=== PATIENT | female | born 1990 ===

== ENCOUNTER 2018-02-22 15:55 | Emergency (ER) | payer OTHER ==
[2018-02-22 16:07] VITALS: BP 116/81; PULSE 88; RESP 16; TEMP 98.7; O2SAT 100
[2018-02-22 16:32] LABS: HCG,QUALITATIVE URINE NEGATIVE (NEGATIVE); SQUAMOUS EPITHIAL 1 /hpf (0-5); URINE BACTERIA RARE (<OCC); URINE BILIRUBIN NEGATIVE (NEGATIVE); URINE BLOOD NEGATIVE (NEGATIVE); URINE CLARITY Clear (Clear); URINE COLOR Yellow (YELLOW); URINE GLUCOSE (UA) NORMAL (Normal); URINE LEUKOCYTE ESTERASE NEG Leu/uL (Negative); URINE PROTEIN NEGATIVE (NEGATIVE); URINE UROBILINOGEN NORMAL mg/dL (0.2-1.0)
[2018-02-22] MEDS ORDERED: Alum-Mag Hydrox-Simethicone Susp (30 mL) PO STA (16:58)
--- NOTE | 2018-02-22 17:44 | C.PDOC ---
History Of Present Illness 27 y/o female presents to the ED complaining of trembling in her lower abdomen over the past several weeks. When asked to describe discomfort, patient states it is rumbling. Denies any vomiting, diarrhea, fever, chills, or urinary symptoms. Patient also asking for a physical exam. Time Seen by Provider: 02/22/18 16:24 Chief Complaint (Nursing): Medical Clearance History Per: Patient History/Exam Limitations: no limitations Onset/Duration Of Symptoms: Days Current Symptoms Are (Timing): Still Present Past Medical History Reviewed: Historical Data, Nursing Documentation, Vital Signs Vital Signs: Last Vital Signs Temp 98.7 F 02/22/18 16:04 Pulse 88 02/22/18 16:04 Resp 16 02/22/18 16:04 BP 116/81 02/22/18 16:04 Pulse Ox 100 02/22/18 16:04 - Medical History PMH: No Chronic Diseases Surgical History: - [facility] Procedures DRAINAGE OF PERITONEAL CAVITY, OPEN APPROACH (05/31/16) RESECTION OF PRODUCTS OF CONCEPTION, ECTOPIC, OPEN APPROACH (05/31/16) RESECTION OF RIGHT FALLOPIAN TUBE, OPEN APPROACH (05/31/16) TRANSFUSE NONAUT RED BLOOD CELLS IN PERIPH VEIN, PERC (05/31/16) Family History: States: Unknown Family Hx - Social History Hx Tobacco Use: No Hx Alcohol Use: No Hx Substance Use: No - Immunization History Hx Tetanus Toxoid Vaccination: No Hx Influenza Vaccination: No Hx Pneumococcal Vaccination: No Review Of Systems Except As Marked, All Systems Reviewed And Found Negative. Constitutional: Negative for: Fever, Chills Gastrointestinal: Positive for: Abdominal Pain ("trembling"). Negative for: Nausea, Vomiting, Diarrhea Genitourinary: Negative for: Dysuria, Frequency, Hematuria, Vaginal Bleeding Physical Exam - Physical Exam Appears: Well, Non-toxic, No Acute Distress Skin: Warm, Dry, No Rash Head: Atraumatic, Normacephalic Eye(s): bilateral: Normal Inspection Oral Mucosa: Moist Neck: Normal ROM, Supple Lymphatic: Normal Exam Chest: Symmetrical Cardiovascular: Rhythm Regular, No Friction Rub, No Murmur Respiratory: Normal Breath Sounds, No Accessory Muscle Use, No Rhonchi, No Wheezing Gastrointestinal/Abdominal: Bowel Sounds (active), Soft, No Tenderness, No Organomegaly, No Distention, No Guarding, No Hernia Back: Normal Inspection, No CVA Tenderness, No Vertebral Tenderness Extremity: Normal ROM, No Swelling Extremity: Bilateral: Atraumatic, Normal Color And Temperature Neurological/Psych: Oriented x3, Normal Speech, Normal Motor Gait: Steady ED Course And Treatment O2 Sat by Pulse Oximetry: 100 (RA) Pulse Ox Interpretation: Normal - Other Rad obstructive series X-Ray: Read By Radiologist Interpretation: Accession No. : [id number]. Patient Name / ID : ALL FABIAN / [id number]. Exam Date : 02/22/2018 17:11:04 ( Approved ). Study Comment : Sex / Age : F / 27Y. Creator : Ligia Pedraza MD. Dictator : Ligia Pedraza MD. Sandblast Operator : Sweep Press Operator : Ligia Pedraza MD. Approver2 : Report Date : 02/22/2018 18:09:52. My Comment : . Date of service: 02/22/2018. PROCEDURE: Radiographs of the chest and abdomen (obstructive series). HISTORY: abd pain, nausea. COMPARISON: No prior. TECHNIQUE: AP radiograph of the chest, with upright and supine radiographs of the abdomen. FINDINGS: CHEST: Examination limited by habitus and hypoinflation. Mild patchy infiltrate/atelectasis at the left lung base. No significant pleural effusion. No definite pneumothorax. Please note that chest x-ray has limited sensitivity for the detection of pulmonary masses. ABDOMEN AND PELVIS: Partial probable gaseous distension of the stomach. Nonspecific bowel gas pattern. Moderate constipation. Degenerative changes of the spine. IMPRESSION: Mild patchy atelectasis/infiltrate, left lung base. Partial probable gaseous distension of the stomach. Nonspecific bowel gas pattern. Moderate constipation. Medical Decision Making Medical Decision Making: Plan: * Maalox Plus 30 ml PO * Pepcid 20 mg PO * Motrin 600 mg PO * X-ray obstructive series * Urinalysis * Urine preg * Reassess and dispo Advised patient that we are unable to perform routine physicals from the ED, and she needs to follow up in the clinic. [facility] [place] application provided. Labs reviewed, UA is clear. X-ray results discussed with patient. On reassessment, patient reports feeling better and is requesting to go home. Will discharge home with prescriptions for Miralax and Pepcid. Disposition - Disposition Referrals: [facility] at [facility] [Outside] Disposition: HOME/ ROUTINE Disposition Time: 17:42 Condition: STABLE Additional Instructions: Follow up with the medical doctor within 1-2 days, Return if worsened. Prescriptions: Famotidine [Pepcid] 20 mg PO DAILY #20 tab Polyethylene Glycol 3350 [Miralax] 17 gm PO DAILY PRN #100 ml PRN Reason: Constipation Instructions: Constipation in Adults Forms: [facility] (Icelandic) Print Language: [place] - Clinical Impression Clinical Impression: Constipation - PA / MANAGER PLACEMENT / Resident Statement MD/DO has reviewed & agrees with the documentation as recorded. - Scribe Statement The provider has reviewed the documentation as recorded by the Scribe (Keely Silva) All medical record entries made by the Scribe were at my direction and personally dictated by me. I have reviewed the chart and agree that the record accurately reflects my personal performance of the history, physical exam, medical decision making, and the department course for this patient. I have also personally directed, reviewed, and agree with the discharge instructions and disposition.
--- NOTE | 2018-02-22 18:13 | RAD ---
Date of service: 02/22/2018 PROCEDURE: Radiographs of the chest and abdomen (obstructive series) HISTORY: abd pain, nausea COMPARISON: No prior. TECHNIQUE: AP radiograph of the chest, with upright and supine radiographs of the abdomen. FINDINGS: CHEST: Examination limited by habitus and hypoinflation. Mild patchy infiltrate/atelectasis at the left lung base. No significant pleural effusion. No definite pneumothorax. Please note that chest x-ray has limited sensitivity for the detection of pulmonary masses. ABDOMEN AND PELVIS: Partial probable gaseous distension of the stomach. Nonspecific bowel gas pattern. Moderate constipation. Degenerative changes of the spine. IMPRESSION: Mild patchy atelectasis/infiltrate, left lung base. Partial probable gaseous distension of the stomach. Nonspecific bowel gas pattern. Moderate constipation.
== END 2018-02-22 17:47 | disposition home or self-care (01) ==
LOC: C.ER 15:55
DX: K59.00 Constipation, unspecified (principal)